=== PATIENT | female | born 1990 | race Caucasian/White ===

== ENCOUNTER 2025-02-05 09:55 | Emergency (ER) | payer BC, SELFPAY ==
--- NOTE | 2025-02-05 09:56 | ED_ITS ---
HPI - URI/Sore Throat General Chief Complaint: Upper Respiratory Infection Stated Complaint: Sinus/Sore Throat Time Seen by Provider: 02/05/25 09:56 Source: patient Mode of arrival: ambulatory Limitations: no limitations History of Present Illness HPI Narrative: Essence is a 34-year-old female patient presenting to the clinic today with complaints of sinus congestion/pressure, productive cough with yellow phlegm, b gabriela aches, chills, feeling fevers, and sore throat x3 days. She reports no chest pain but states that her chest feels tight. History of asthma. Is a a pack-a-day tobacco smoker Related Data Allergies Allergy/AdvReac Type Severity Reaction Status Date / Time ibuprofen Allergy Intermediate Swelling Verified 02/05/25 09:57 naproxen Allergy Intermediate Swelling Verified 02/05/25 09:57 pseudoephedrine Allergy Intermediate Swelling Verified 02/05/25 09:57 DIPHENHYDRAMINE HCL Allergy Intermediate Rash Uncoded 02/05/25 09:57 Review of Systems Review of Systems: Pertinent positives per HPI. Patient denies any fever, chills, rash, headache, visual changes, dizziness, cough, shortness of breath, chest pain, palpitations, nausea, vomiting, diarrhea, constipation, abdominal pain, or any urinary issues. PMFSH Comments At the time of my signature, I reviewed and agree with the nursing past medical, surgical, social, and family history. There is no relevant family history pertinent to the patient complaint. Exam Narrative: General: Well-developed, well nourished, in no apparent distress Head: Normocephalic, atraumatic Eyes: Pupils equally round and reactive to light bilaterally, EOM intact, sclera and conjunctive clear, no discharge, lids normal Ears: TMs intact and clear, ear canals clear, no drainage, grossly hearing normal. Nose: Nares patent, clear nasal discharge, mild inflammation, no sinus tenderness. Mouth: Oral pharynx red without lesions or masses, good dentition, MMM. Postnasal drip Neck: Supple, trachea midline, no enlargement of anterior or posterior cervical nodes, no thyroid masses or goiter palpable. Cardio: Regular rate and rhythm, s1 and s2 normal, no murmur appreciated. Resp: Lung sounds diminished. No rhonchi, rales, wheezing or rubs Course Course Emergency Course: Portions of this record may have been created with voice recognition software. Level of Care: Express Care Visit Vital Signs Vital signs: Vital Signs Temperature 36.4 C 02/05/25 10:09 Pulse Rate 87 02/05/25 10:09 Respiratory Rate 20 02/05/25 10:09 Blood Pressure 133/70 02/05/25 10:09 Pulse Oximetry 100 02/05/25 10:09 Oxygen Delivery Room Air 02/05/25 10:09 Temperature 36.4 C 02/05/25 10:09 Pulse Rate 87 02/05/25 10:09 Respiratory Rate 20 02/05/25 10:09 Blood Pressure 133/70 02/05/25 10:09 Pulse Oximetry 100 02/05/25 10:09 Oxygen Delivery Room Air 02/05/25 10:09 Vital signs reviewed MDM - URI/Sore Throat MDM Narrative Medical decision making narrative: At the time of visit patient is resting comfortably on the exam table. Patient appears to be nontoxic. Labs: COVID, influenza, and strep test were all negative. We will send strep for culture Plan: I suspect patient has URI/bronchitis. She has history of asthma and is coughing up purulent sputum. Prescription for azithromycin, prednisone, and albuterol inhaler was sent to the pharmacy. Supportive measures were discussed with the patient and they voiced understanding discharge instructions and agrees to treatment plan. Return precautions reviewed Differential Diagnosis Differential diagnosis: Likely upper respiratory infection, otitis media, sinusitis, viral infection, bronchitis, influenza, pharyngitis and other (COVID) Lab Data Labs: Lab Results 02/05/25 Range/Units 10:06 POC Influenza A Ag Negative (Negative) POC Influenza B Ag Negative (Negative) POC SARS CoV-2 Ag Negative (Negative) POC Grp A Strep Screen Negative (Negative) Discharge Plan Discharge Clinical Impression: Bronchitis Upper respiratory infection Qualifiers: URI type: unspecified URI Qualified Code(s): J06.9 - Acute upper respiratory infection, unspecified Patient Disposition: Home Condition: Stable Instructions: Antibiotic Form, Acute Bronchitis (ED), Cold Symptoms (ED) Additional Instructions: Take prescription medications only as prescribed-albuterol inhaler, prednisone, azithromycin Increase fluids and stay well hydrated Tylenol for pain/fever Flonase and OTC antihistamines as directed Vicks vapor rub to open sinuses Sinus rinses for congestion Cepacol spray, cough drops, throat lozenges, warm tea with honey/lemon, gargle salt water to soothe throat BRAT diet for diarrhea Clear liquids x 24 hours then advance as tolerated for nausea/vomiting Go to the ED if you develop a worsening in your condition- high fever not controlled by Tylenol or Motrin, dehydration, weakness, lethargy, shortness of breath, or chest pain. Follow up with your PCP in 3-5 days if symptoms persist. Patient Language: Bulgarian Prescriptions: New azithromycin 250 mg tablet See Rx Instructions .ROUTE .COMPLEX Qty: 6 0RF Rx Instructions: For 250 mg dose pack: take 500 mg today (day 1), then 250 mg for 4 days (days 2-5) prednisone 20 mg tablet 40 mg PO DAILY 5 Days Qty: 10 0RF albuterol sulfate 90 mcg/actuation HFA aerosol inhaler 2 puff inhalation Q4-6H PRN (Reason: shortness of breath or wheezing) 30 Days Qty: 8.5 0RF benzonatate 200 mg capsule 200 mg PO TID 7 Days Qty: 21 0RF Follow-up/Referrals: UNKNOWN,DOCTOR [Non-Staff] - Time of Disposition: 10:13 Quality NIHSS Nursing Documentation ED NIHSS nursing documentation: reviewed/agree
[2025-02-05 10:09] VITALS: BP 133/70; PULSE 87; RESP 20; TEMP 36.4; O2SAT 100
[2025-02-05 10:23] LABS: EDSTREPNEGPOS1 Negative (Negative)
[2025-02-05 10:26] LABS: EDCOVIDSCREEN Negative (Negative); EDINFLUASCREEN Negative (Negative); EDINFLUBSCREEN Negative (Negative)
== END 2025-02-05 10:26 | disposition home or self-care (01) ==
PROVIDERS: Emergency Provider Nurse Practitioner Family
DX: J40 Bronchitis, not specified as acute or chronic (principal); J06.9 Acute upper respiratory infection, unspecified; Z20.822 Contact with and (suspected) exposure to COVID-19
CPT/HCPCS: 87081; 87426; 87804; 87880; 99203; G0463

== ENCOUNTER 2025-04-01 13:52 | Emergency (ER) | payer BC, SELFPAY ==
[2025-04-01 13:54] VITALS: BP 126/80; PULSE 91; RESP 18; TEMP 36.6; O2SAT 100
--- OUTSIDE RECORDS SUMMARY | 2025-04-01 13:54 | XMS_ITS | Clinical Summary ---
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 Gender Identity Not on file Sexual Orientation Not on file Plan of Treatment Health Maintenance Due Date Last Done Comments Hepatitis C Virus (HCV) Screening 1992 TdaP Immunization 1992 Hepatitis B Immunization (1 of 3 - 19+ 3-dose series) 2011 Pap Smear 2013 Cervical Cancer Screening (CCS) 2022 HPV/Cotest 2022 Influenza Immunization (#1) 2024 SARS-COV-2 Immunization ( season) 2024 Respiratory Syncytial Virus (RSV) Immunization (Adult) (1 - 1-dose 75+ series) 2067 Meningococcal Immunization (ACWY) Aged Out No longer eligible based on patient's age to complete this topic Pneumococcal Immunization Combined Aged Out No longer eligible based on patient's age to complete this topic Rotavirus Immunization Aged Out No lo nger eligible based on patient's age to complete this topic
--- OUTSIDE RECORDS SUMMARY | 2025-04-01 13:54 | XMS_ITS | Clinical Summary ---
Author Organization [facility] Address [address] [place] [id number] Care Team Providers Care Corn Press Operator Name Role Phone None, Provider MD Primary Care Provider Unavaila ble Allergies Active Allergy Reactions Criticality Noted Date Comments Ibuprofen Unknown 09/18/2015 Diphenhydramine Hives 06/24/2018 Ibuprofen Swelling 06/24/2018 Sulfamethoxazole Unknown 09/18/2015 Medications guaiFENesin ER (MUCINEX) 600 MG 12 hr tablet Take 2 tablets (1,200 mg total) by mouth 2 (two) times daily. 28 tablet 01/22/2024 Active albuterol sulfate HFA 108 (90 Base) MCG/ACT inhaler Inhale 2 puffs into the lungs every 6 (six) hours as needed. 8 g 01/22/2024 Active Active Problems No known active problems Family History Medical History Relation Comments No Known Problems Father Cancer Mother Heart Disease Mother Relation Status Comments Father Alive Mother Social History Tobacco Use Types Packs/Day Years Used Date Smoking Tobacco: Every Day Cigarettes Smokeless Tobacco: Never Alcohol Use Standard Drinks/Week Comments Yes 0 (1 standard drink = 0.6 oz pur e alcohol) OCCAS AUDIT-C Answer Date Recorded Frequency of Alcohol Consumption Never 05/12/2019 Average Number of Drinks Not on file 019 Frequency of Binge Drinking Not on file 04/16 Comments No Sex and Gender Information Value Date Recorded Sex Assigned at Female 11/20/2024 5:27 PM RN SUPPORT SERVICES Legal Sex Female 8:25 PM CDT Gender Identity Not on file Sexual Orientation Not on file Last Filed Vital Signs Vital Sign Reading Time Taken Comments Blood Pressure 118/70 11/20/2024 5:58 PM RN SUPPORT SERVICES Pulse 82 11/20/2024 5:58 PM RN SUPPORT SERVICES Temperature 36.9 C (98.4 F) 11/20/2024 3:41 PM RN SUPPORT SERVICES Respiratory Rate 16 11/20/2024 5:58 PM RN SUPPORT SERVICES Oxygen Saturation 100% 11/20/2024 5:58 PM RN SUPPORT SERVICES Inhaled Oxygen Concentration - - Weight 60.9 kg (134 lb 4.2 oz) 11/20/2024 3:41 P M RN SUPPORT SERVICES Height 157.5 cm (5' 2) 11/20/2024 3:41 PM RN SUPPORT SERVICES Body Mass Index 24.56 11/20/2024 3:41 PM RN SUPPORT SERVICES Plan of Treatment Health Maintenance Due Date Last Done Comments Annual Physical 1995 Hepatitis C 2010 DTaP, Tdap and Td Vaccines ( 1 - Tdap) 2011 Hepatitis B Vaccines (1 of 3 - 19+ 3-dose series) 2011 Pneumococcal Vaccine: Pediat rics (0 to 5 Years) and At-Risk Patients (6 to 49 Years) (1 of 2 - PCV) 2011 Cervical Cancer Screening Pa p with HPV Testing (Age 30 to 64) Every 5 Years 2022 12/29/2021 COVID-19 Vaccine (1 - 2023-2 5 season) 2024 Cervical Cancer Screening Pa p Smear (Age 30 to 64) Every 3 Years 12/29/2024 12/29/2021 Cervical Cancer Screening with HPV 12/29/2024 HPV Vaccines Aged Out No longer eligi ble based on patient's age to complete this topic Meningococcal B Vaccine Aged Out No l onger eligible based on patient's age to complete this topic Meningococcal Vaccine Aged Out No dawson malachi eligible based on patient's age to complete this topic RSV Immunizations Under 20 Months Aged Out No longer eligible based on patient's age to complete [place] [address] [address] [facility] Care Teams Corn Press Operator Relationship Specialty Start Date End Date None, Provider, PCP - General 05/04/22
--- OUTSIDE RECORDS SUMMARY | 2025-04-01 13:54 | XMS_ITS | Clinical Summary ---
Author Organization [facility] Address [address] [place] [address] Care Team Providers Care Grant Writer Name Role Phone No, Physician Primary Care Provider [phone] Allergies Active Allergy Reactions Criticality Noted Date Comments Diphenhydramine Anaphylaxis High 12/29/2021 Ibuprofen Anaphylaxis High 12/29/2021 Sulfa (Sulfonamide Antibiotics) Unknown 12/29/2021 Unsure of reaction Medications pseudoephedrine (SUDAFED) 30 mg tabletIndicatio ns:Nasal Congestion Take 1 tablet (30 mg total) by mouth every 6 (six) hours as needed for congestion 30 tablet 2 Active albuterol HFA (PROVENTIL HFA,VENTOLIN HFA,PROAIR HFA) 90 mcg/actuation inhalerIndicati ons:Bronchospas m Prevention Inhale 2 puffs every 4 (four) hours as needed for wheezing for up to 7 days 8.5 g 3 Active benzonatate (TESSALON) 100 mg capsuleIndicati ons:Cough Take 1 capsule (100 mg total) by mouth every 8 (eight) hours 21 capsule 3 Active albuterol HFA (PROVENTIL HFA,VENTOLIN HFA,PROAIR HFA) 90 mcg/actuation inhaler Inhale 2 puffs every 4 (four) hours as needed for wheezing 1 each 3 Active Active Problems No known active problems Social History Tobacco Use Types Packs/Day Years Used Date Smoking Tobacco: Never Assessed Personal Safety Answer Date Recorded Have you ever been in or are you currently in a harmful physical or emotional relationship or is someone making you feel afraid or unsafe? 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 Gender Identity Not on file Sexual Orientation Not on file Obstetrics History Para Term AB IAB SAB Ectopic Multiple Livin g Live Births 1 Date Outcome GA Total Labor Labor/2nd/3rd Weight Sex Type Anes PTL Fatoumata A1 A5 Name Clin Last Filed Vital Signs Vital Sign Reading Time Taken Comments Blood Pressure 114/89 06/27/2023 12:17 PM CDT Pulse 84 06/27/2023 12:17 PM CDT Temperature 36.9 C (98.4 F) 06/27/2023 10:27 AM CDT Respiratory Rate 20 06/27/2023 12:17 PM CDT Oxygen Saturation 98% 06/27/2023 12:17 PM CDT Inhaled Oxygen Concentration - - Weight 59.5 kg (131 lb 2.8 oz) 06/27/2023 10:27 AM CDT Height 157.5 cm (5' 2) 01/07/2023 10:44 AM CDT Body Mass Index 23.99 01/07/2023 10:44 AM CDT Plan of Treatment Health Maintenance Due Date Last Done Comments Cervical Cancer Screening 1992 Depression Screening 1992 Hepatitis C Screening 1992 DTaP/Tdap/Td Vaccine (5 - Tdap) 2003 01/02/1998, 01/06/1997, 04/17/1995, Additional history exists Varicella Vaccines (1 of 2 - 13+ 2-dose series) 2005 Regular Well Visit/Exam 18-64 2010 Influenza Vaccine (Season Ended) 2025 Hepatitis B Screening Completed 01/06/1997 , 05/22/1995, 04/17/1995 HPV Vaccines Aged Out No longer eligi ble based on patient's age to complete this topic Pneumococcal vaccine <65 Aged Out No longer eligible based on patient's age to complete this topic [place] [place] [address] Care Teams Grant Writer Relationship Specialty Start Date End Date No, Physician PCP - General 12/29/21
--- OUTSIDE RECORDS SUMMARY | 2025-04-01 13:54 | XMS_ITS | Referral Summary ---
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
--- NOTE | 2025-04-01 17:02 | PC.NURSE ---
Patient did not answer page X2. @[phone] and @[phone]
--- OUTSIDE RECORDS SUMMARY | 2025-04-01 18:39 | XMS_ITS | Clinical Summary ---
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
--- OUTSIDE RECORDS SUMMARY | 2025-04-01 18:39 | XMS_ITS | Clinical Summary ---
Author Organization [facility] Address [address] [place] [address] Care Team Providers Care Directional Driller Name Role Phone None, Provider MD Primary [...] Sex Assigned at Female 11/20/2024 5:27 PM DIAMOND DIE DRILLER Legal Sex Female 8:25 PM CDT Gender Identity Not on file Sexual Orientation Not on file Last Filed Vital Signs Vital Sign Reading Time Taken Comments Blood Pressure 118/70 11/20/2024 5:58 PM DIAMOND DIE DRILLER Pulse 82 11/20/2024 5:58 PM DIAMOND DIE DRILLER Temperature 36.9 C (98.4 F) 11/20/2024 3:41 PM DIAMOND DIE DRILLER Respiratory Rate 16 11/20/2024 5:58 PM DIAMOND DIE DRILLER Oxygen Saturation 100% 11/20/2024 5:58 PM DIAMOND DIE DRILLER Inhaled Oxygen Concentration - - Weight 60.9 kg (134 lb 4.2 oz) 11/20/2024 3:41 P M DIAMOND DIE DRILLER Height 157.5 cm (5' 2) 11/20/2024 3:41 PM DIAMOND DIE DRILLER Body Mass Index 24.56 11/20/2024 3:41 PM DIAMOND DIE DRILLER Plan of Treatment Health Maintenance Due Date [...] [place] [address] [facility] Care Teams Directional Driller Relationship Specialty Start Date End Date None, Provider, PCP - General 05/04/22
--- OUTSIDE RECORDS SUMMARY | 2025-04-01 18:39 | XMS_ITS | Referral Summary ---
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
--- OUTSIDE RECORDS SUMMARY | 2025-04-01 18:39 | XMS_ITS | Clinical Summary ---
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
== END 2025-04-01 18:43 | disposition left against medical advice (07) ==
LOC: ANHED 18:37
DX: R42 Dizziness and giddiness (principal)
CPT/HCPCS: 99199